=== PATIENT | male | born 1960 | race Caucasian/White ===

== ENCOUNTER → 2020-09-19 | Outpatient (CLI) | payer OTHER ==
--- NOTE | 2020-09-19 08:45 | Diagnostic Imaging Report ---
PROCEDURE: US Thyroid. TECHNIQUE: Multiple Real-time grayscale images were obtained of the thyroid in various projections. INDICATION: Hypothyroidism. FINDINGS: The thyroid is nonfocal. The right lobe measures 3.7 x 0.9 x 1.4 cm and the left lobe is 4.0 x 0.9 x 0.9 cm. No solid or cystic mass. No abnormal elevation of the color Doppler blood flow. No parathyroidal abnormality. IMPRESSION: The thyroid is at the lower limits of size but nonfocal. No solid or cystic mass. No fluid collection. Dictated by: Dictated on workstation # [id number]
== END ==
LOC: RAD 08:00
PROVIDERS: ATTEND Nurse Practitioner Family
DX: E03.9 Hypothyroidism, unspecified (principal)
CPT/HCPCS: 76536